=== PATIENT | female | born 1985 | race African-American/Black ===

== ENCOUNTER 2017-02-25 22:49 | Emergency (ER) | payer SELFPAY ==
[~2017-02-25] VITALS: Ht 165.1 cm; Wt 68.0 kg
--- NOTE | 2017-02-25 22:50 | NUR ---
Dr. Nevarez evaluating patient
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
[2017-02-25 22:53] VITALS: BP 124/88
--- NOTE | 2017-02-25 22:53 | NUR ---
PT OG BLS. TAKEN TO BED 6
[2017-02-25] MEDS ORDERED: NACL 0.9% 1,000 ML IV ONE (23:10)
--- NOTE | 2017-02-25 23:21 | NUR ---
[place] [facility] AT BEDSIDE
[2017-02-25 23:38] LABS: BASOPHILS # (AUTO) 0.3 K/uL (0.00-0.22); EOSINOPHILS # (AUTO) 0.1 K/uL (0-0.4); EOSINOPHILS % (AUTO) 1.1 % (0.0-4.0); LYMPHOCYTES # (AUTO) 2.4 K/uL (2.5-16.5); LYMPHOCYTES % (AUTO) 22.1 % (20.5-51.1); MEAN CORPUSCULAR HEMOGLOBIN 27 pg (27-31); MEAN CORPUSCULAR HGB CONC 33 g/dL (33-37); MEAN CORPUSCULAR VOLUME 82 fL (80-94); MONOCYTES # (AUTO) 0.8 K/uL (0.8-1.0); MONOCYTES % (AUTO) 7.3 % (1.7-9.3); NEUTROPHILS # (AUTO) 7.1 K/uL (1.8-7.7); NEUTROPHILS % (AUTO) 66.5 % (42.2-75.2); PLATELET COUNT (AUTO) 306 K/uL (140-450); RED BLOOD CELL COUNT(AUTO) 4.85 MIL/uL (4.20-5.40); RED CELL DISTRIBUTION WIDTH 12.9 % (11.6-13.7); WHITE BLOOD COUNT (AUTO) 10.7 K/uL (4.8-10.8)
[2017-02-25 23:45] LABS: APPEARANCE,URINE HAZY (CLEAR); BILIRUBIN,URINE NEGATIVE (NEGATIVE); BLOOD, URINE NEGATIVE (NEGATIVE); COLOR,URINE YELLOW (YELLOW); LEUKOCYTE ESTERASE ,URINE NEGATIVE (NEGATIVE); NITRITE, URINE NEGATIVE (NEGATIVE); PROTEIN,URINE 2+ (NEGATIVE); UGLUCOSE NEGATIVE (NEGATIVE); UROBILINOGEN,URINE 0.2 EU/dL (0.2 - 1)
[2017-02-25 23:52] LABS: AMPHETAMINE, URINE POS. ng/ml (NEG <=1000); BARBITURATE, URINE NEG. ng/ml (NEG <=200); BENZODIAZEPINE, URINE NEG. ng/mL (NEG <=200); CANNABINOID, URINE NEG. ng/mL (NEG <=50); COCAINE, URINE NEG. ng/mL (NEG <=300); OPIATE, URINE NEG. ng/mL (NEG <=2000); PHENCYCLIDINE SCREEN,URINE NEG. ng/mL (NEG <=25)
[2017-02-25 23:53] LABS: ACETAMINOPHEN < 0.5 ug/ml (10-30); ALANINE AMINOTRANSFERASE 31 U/L (14-59); ALBUMIN 3.7 g/dL (3.4-5.0); ALCOHOL, BLOOD < 3 mg/dL (<3); ALKALINE PHOSPHATASE 76 U/L (46-116); ANION GAP 11.2 (8-16); ASPARTATE AMINOTRANSFERASE 20 U/L (15-37); CARBON DIOXIDE 28.1 mmol/L (21-32); CHLORIDE 105 mmol/L (98-107); CREATININE 1.5 mg/dL (0.6-1.3); GFR ARICAN-AMERICAN 52 mL/min (>90); GFR NON ARICAN-AMERICAN 43 mL/min (>90); GLUCOSE 88 mg/dL (74-106); POTASSIUM 4.3 mmol/L (3.5-5.1); SALICYLATE < 2.8 mg/dL (2.8-20.0); SODIUM SERUM 140 mmol/L (136-145); TOTAL BILIRUBIN 0.3 mg/dL (0.0-1.0); TOTAL PROTEIN, SERUM 7.5 g/dL (6.4-8.2); UREA NITROGEN, BLOOD 15 mg/dL (7-18)
[2017-02-25 23:54] LABS: RBC,URINE 0-5 (RARE) /HPF (0-5); WBC,URINE 0-5 (RARE) /HPF (0-5)
[2017-02-25 23:55] LABS: BACTERIA,URINE FEW /HPF (None Seen); CALCIUM OXALATE CRYSTALS,UR 50-70 /HPF (None Seen); MUCUS,URINE 2+ /LPF (None Seen)
--- NOTE | 2017-02-25 23:57 | NUR ---
PT TAKEN TO CT
[2017-02-26] MEDS ORDERED: HYDROcodone/APAP 10/325 MG 1 TAB TAB PO STA (04:09)
--- NOTE | 2017-02-26 04:25 | NUR ---
IV removed, catheter intact and site benign. Applied folded 4x4 gauze and tape to stop bleeding.
--- NOTE | 2017-02-26 04:30 | NUR ---
Patient discharged with v/s stable. Written and verbal after care instructions given and explained. Patient alert, oriented and verbalized understanding of instructions. Ambulatory with steady gait. All questions addressed prior to discharge. ID band removed. Patient advised to follow up with PMD. Rx of NORCO 10/325MG given. Patient educated on indication of medication including possible reaction and side effects. Opportunity to ask questions provided and answered.
[2017-02-26 04:31] VITALS: BP 119/82
== END 2017-02-26 04:30 | disposition home or self-care (01) ==
LOC: MED 22:49
DX: S00.93XA Contusion of unspecified part of head, initial encounter (principal); S05.01XA Injury of conjunctiva and corneal abrasion without foreign body, right eye, initial encounter; F12.90 Cannabis use, unspecified, uncomplicated; F32.9 Major depressive disorder, single episode, unspecified; Y04.2XXA Assault by strike against or bumped into by another person, initial encounter; Y93.89 Activity, other specified; Y92.89 Other specified places as the place of occurrence of the external cause; Y99.8 Other external cause status
CPT/HCPCS: 36415; 70450; 72125; 80053; 80305; 81001; 81025; 82948; 85025; 96360; 99285; C1758; G0480; G0482; J7030

== ENCOUNTER 2017-07-25 19:29 | Emergency (ER) | payer SELFPAY ==
[~2017-07-25] VITALS: Ht 152.4 cm; Wt 67.6 kg
--- NOTE | 2017-07-25 19:29 | NUR ---
LO[facility]O WHITE. TAKEN TO BED 1
[2017-07-25 19:30] VITALS: BP 134/99
[2017-07-25] MEDS ORDERED: DICYCLOMINE HCL LIQUID 20 MG, ALUMINUM HYD/MAG/SIMETHICONE 30 ML, LIDOCAINE VISCOUS 2% ... PO ONE ×3 (19:35)
[2017-07-25] MEDS ORDERED: KETOROLAC 30 MG/ML VIAL IM ONE (19:35)
[2017-07-25] MEDS ORDERED: ONDANSETRON 4 MG ODT PO ONE (19:35)
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
[2017-07-25] MEDS ORDERED: ONDANSETRON 4 MG/2 ML VIAL IM ONE (19:45)
--- NOTE | 2017-07-25 19:45 | NUR ---
X-Ray at bedside.
--- NOTE | 2017-07-25 19:50 | NUR ---
[facility] CALLED AND NOTIFIED ABOUT BLEACH INGESTION.
[2017-07-25] MEDS ORDERED: ONDANSETRON 4 MG/2 ML VIAL ONE (19:57)
[2017-07-25 20:45] VITALS: BP 126/81
--- NOTE | 2017-07-25 20:45 | NUR ---
Patient discharged with v/s stable. Written and verbal after care instructions given and explained. Patient alert, oriented and verbalized understanding of instructions. Ambulatory with steady gait. All questions addressed prior to discharge. ID band removed. Patient advised to follow up with PMD. Rx of MYLANTA AND ZOFRAN given. Patient educated on indication of medication including possible reaction and side effects. Opportunity to ask questions provided and answered.
[2017-07-25 21:17] LABS: BARBITURATE, URINE NEG. ng/ml (NEG <=200); BENZODIAZEPINE, URINE NEG. ng/mL (NEG <=200); CANNABINOID, URINE POS. ng/mL (NEG <=50); COCAINE, URINE NEG. ng/mL (NEG <=300); OPIATE, URINE NEG. ng/mL (NEG <=2000); PHENCYCLIDINE SCREEN,URINE NEG. ng/mL (NEG <=25)
== END 2017-07-25 20:45 | disposition home or self-care (01) ==
LOC: MED 19:29
DX: T50.901A Poisoning by unspecified drugs, medicaments and biological substances, accidental (unintentional), initial encounter (principal); R10.10 Upper abdominal pain, unspecified; F17.210 Nicotine dependence, cigarettes, uncomplicated; Y92.89 Other specified places as the place of occurrence of the external cause
CPT/HCPCS: 71010; 80305; 81025; 96372; 99285; J1885; J2405; Q0092

== ENCOUNTER 2021-10-19 23:35 | Emergency (ER) | payer SELFPAY ==
[~2021-10-19] VITALS: Ht 152.4 cm; Wt 76.2 kg
[2021-10-20 00:10] VITALS: BP 137/68
--- NOTE | 2021-10-20 00:17 | NUR ---
PT TAKEN TO BED 11.
[2021-10-20] MEDS ORDERED: KETOROLAC 60 MG/2 ML VIAL IM ONE (00:30)
--- NOTE | 2021-10-20 00:30 | NUR ---
36 Y/O FEMALE BIB SELF, C/O PAIN IN LEFT LEG X4 DAYS. PATIENT PRESENTS TO ED WITH REDNESS, PAIN, AND SWELLING IN LEFT LEG. DENIES N/V/D; SKIN IS PINK/WARM/DRY; PT DENIES ANY FEVER, CP, SOB, OR COUGH AT THIS TIME; PATIENT STATES PAIN OF 10/10 AT THIS TIME; VSS; PATIENT POSITIONED FOR COMFORT; HOB ELEVATED; BEDRAILS UP X2; BED DOWN. ER MD MADE AWARE OF PT STATUS. HX:ASTHMA RX:ALBUTEROL
[2021-10-20] MEDS ORDERED: CEPH-588 PO (00:32)
[2021-10-20] MEDS ORDERED: ACET-8386 PO (00:32)
[2021-10-20] MEDS ORDERED: IBUP-2213 PO (00:32)
[2021-10-20 00:41] VITALS: BP 137/68
--- NOTE | 2021-10-20 00:41 | NUR ---
Patient discharged with v/s stable. Written and verbal after care instructions given and explained. Patient alert, oriented and verbalized understanding of instructions. Ambulatory with steady gait. All questions addressed prior to discharge. ID band removed. Patient advised to follow up with PMD. Rx of Hydrococdone/Acetaminophen, Ibuprofen, and Cephalexin given. Patient educated on indication of medication including possible reaction and side effects. Opportunity to ask questions provided and answered. A/OX4, VSS, AMBULATORY, UNLABORED BREATHING, AND CALM DEMEANOR.
== END 2021-10-20 00:41 | disposition home or self-care (01) ==
LOC: MED 23:35
DX: L03.116 Cellulitis of left lower limb (principal); J45.909 Unspecified asthma, uncomplicated; F17.200 Nicotine dependence, unspecified, uncomplicated
CPT/HCPCS: 96372; 99283; J1885

== ENCOUNTER 2021-10-23 21:35 | Emergency (ER) | payer SELFPAY ==
[~2021-10-23] VITALS: Ht 152.4 cm; Wt 76.2 kg
[~2021-10-23 21:35] MED LIST: ACET-8386 PO; CEPH-588 PO; IBUP-2213 PO
[2021-10-23 22:20] VITALS: BP 137/79
--- NOTE | 2021-10-23 22:30 | NUR ---
PT W/C ASSISTED TO BED #6
--- NOTE | 2021-10-23 22:55 | NUR ---
PATIENT PRESENTS TO ED WITH LLE ABSCESS. PT STATES SHE CAME IN TO ED X2 DAYS AND ABX DID NOT HELP. SPIDER BITE OCCURRED X1 WEEK. DENIES N/V/D; SKIN IS PINK/WARM/DRY; AAOX4 WITH EVEN AND STEADY GAIT; LUNGS CLEAR BL; HR EVEN AND REGULAR; PT DENIES ANY FEVER, CP, SOB, OR COUGH AT THIS TIME; PATIENT STATES PAIN OF 8/10 SHARP PAIN AT RANDOM TIMES. PT HAS +2 PITTING EDEMA LLE; VSS; PATIENT POSITIONED FOR COMFORT; HOB ELEVATED; BEDRAILS UP X2; BED DOWN. ER MD MADE AWARE OF PT STATUS. PMH: ASTHMA ALLERGIES: DENIES MEDS: INHALER PRN; CLINDAMYCIN
[2021-10-24 00:02] LABS: BASOPHILS # (AUTO) 0.1 K/uL (0.00-0.22); BASOPHILS % (AUTO) 1.3 % (0.0-2.0); EOSINOPHILS # (AUTO) 0.2 K/uL (0-0.4); EOSINOPHILS % (AUTO) 3.2 % (0.0-4.0); HEMATOCRIT 34.5 % (36-48); HEMOGLOBIN 11.3 g/dL (12.0-16.0); LYMPHOCYTES # (AUTO) 2.8 K/uL (2.5-16.5); LYMPHOCYTES % (AUTO) 36.4 % (20.5-51.1); MEAN CORPUSCULAR HEMOGLOBIN 27 pg (27-31); MEAN CORPUSCULAR HGB CONC 33 g/dL (33-37); MEAN CORPUSCULAR VOLUME 81.5 fL (80-94); MONOCYTES # (AUTO) 0.7 K/uL (0.8-1.0); MONOCYTES % (AUTO) 8.6 % (1.7-9.3); NEUTROPHILS # (AUTO) 3.8 K/uL (1.8-7.7); NEUTROPHILS % (AUTO) 50.5 % (42.2-75.2); PLATELET COUNT (AUTO) 345 K/uL (140-450); RED BLOOD CELL COUNT(AUTO) 4.23 MIL/uL (4.20-5.40); RED CELL DISTRIBUTION WIDTH 13.8 % (11.6-13.7); WHITE BLOOD COUNT (AUTO) 7.6 K/uL (4.8-10.8)
[2021-10-24 00:10] LABS: ANION GAP 11.6 (8-16); POTASSIUM 4.6 mmol/L (3.5-5.1)
--- NOTE | 2021-10-24 00:30 | NUR ---
[facility] AT BEDSIDE
[2021-10-24] MEDS ORDERED: VANCOMYCIN 1,000 MG in DEXTROSE 5% 250 ML IV ONE (00:50)
[2021-10-24] MEDS ORDERED: VANCOMYCIN 1,000 MG VIAL ONE (01:10)
[2021-10-24] MEDS ORDERED: KETOROLAC 15 MG/ML VIAL IVP ONE (02:00)
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
[2021-10-24] MEDS ORDERED: LIDOCAINE 2% 1000 MG/50 ML VIAL INJ ONE (04:05)
--- NOTE | 2021-10-24 04:20 | NUR ---
PT STABLE AND ASLEEP. VSS.
[2021-10-24] MEDS ORDERED: MORPHINE SULFATE 4 MG/ML SYR ONE (06:12)
[2021-10-24] MEDS ORDERED: SULF-59 PO (06:14)
[2021-10-24] MEDS ORDERED: MORPHINE SULFATE 4 MG/ML SYR IVP ONE (06:15)
--- NOTE | 2021-10-24 06:30 | NUR ---
DR MOROCHO AT BEDSIDE . PT BANDAGED
[2021-10-24] MEDS ORDERED: BACITRACIN OINT 500 UNITS/GM PKT TP ONE (06:33)
[2021-10-24 07:00] VITALS: BP 115/60
--- NOTE | 2021-10-24 07:00 | NUR ---
Patient discharged with v/s stable. Written and verbal after care instructions given and explained. Patient alert, oriented and verbalized understanding of instructions. Wheel Chair Assisted with to car. All questions addressed prior to discharge. ID band removed. Patient advised to follow up with PMD. Rx of bactrim given. Opportunity to ask questions provided and answered.
== END 2021-10-24 07:00 | disposition home or self-care (01) ==
LOC: MED 21:35
DX: L02.416 Cutaneous abscess of left lower limb (principal); L03.116 Cellulitis of left lower limb
CPT/HCPCS: 10060; 36415; 80048; 85025; 93971; 96365; 96375; 99285; J1885; J2001; J2270; J3370; Q0092

== ENCOUNTER 2022-04-03 11:01 | Emergency (ER) | payer SELFPAY ==
[~2022-04-03] VITALS: Ht 152.4 cm; Wt 88.5 kg
[~2022-04-03 11:01] MED LIST changes: +SULF-59 PO
[2022-04-03 11:18] VITALS: BP 103/36
--- NOTE | 2022-04-03 11:21 | NUR ---
PT AMBULATED TO BED 06.
--- NOTE | 2022-04-03 11:50 | NUR ---
36YO FEMALE PT C/O TIGHT 3/10 L EAR PAIN X2 WEEKS. PT STATES SUDDEN ONSET W/ RADIATION IN L SIDE OF JAW AND TEETH. REPORTS INCREASED LOSS OF HEARING AND RINGING XTODAY. MILD RELIEF AFTER USING " EAR DROPS", NORCO AND TYLENOL. DENIES N/V/D, SOB OR CHILLS. REPORTS ORAL FEVER OF 102 LAST WEEK. EAR PRESENTS CLEAR W/O VISIBLE INJURY OR DISCHARGE. NOTES OCCASIONAL "PINK PUSS". MILD DIZZINESS AT THIS TIME. PT AAOX4, NO VISIBLE DISTRESS, RESPIRATIONS EVEN AND UNLABORED. HOB POSITIONED PER COMFORT, BED AT LOWEST POSITION , BED RAIL UP X2. HX: ASTHMA, HYPOTHYROID NKA
--- NOTE | 2022-04-03 12:04 | NUR ---
[facility] AT BEDSIDE FOR EVALUATION
[2022-04-03] MEDS ORDERED: IBUPROFEN 800 MG TAB PO ONE (12:25)
[2022-04-03] MEDS ORDERED: IBUP-2213 PO (12:38)
[2022-04-03] MEDS ORDERED: CIPR7.5S OT (12:38)
[2022-04-03] MEDS ORDERED: AMOX1TAB8 PO (12:38)
[2022-04-03 12:55] VITALS: BP 115/80
--- NOTE | 2022-04-03 12:56 | NUR ---
Patient discharged with v/s stable. Written and verbal after care instructions given and explained. Patient verbalized understanding. Ambulatory with steady gait. All questions addressed prior to discharge. Advised to follow up with PMD.
--- NOTE | 2022-04-03 12:56 | NUR ---
The patient's care was reviewed and supervised by ED Agency Nurse 9, RN, RN.
== END 2022-04-03 12:56 | disposition home or self-care (01) ==
LOC: MED 11:01
DX: H60.502 Unspecified acute noninfective otitis externa, left ear (principal); J45.909 Unspecified asthma, uncomplicated; Z79.899 Other long term (current) drug therapy
CPT/HCPCS: 99282

== ENCOUNTER 2023-09-29 18:31 | Inpatient (IN) | payer MEDICAID ==
[~2023-09-29] VITALS: Ht 152.4 cm; Wt 80.7 kg
[~2023-09-29 18:31] MED LIST changes: -ACET-8386 PO; +ACET-8905 PO; +AMOX-1230 PO; +AMOX1TAB8 PO; +CIPR7.5S OT
[2023-09-29 18:50] VITALS: BP 107/83; PULSE 112; RESP 22; TEMP 98.3; O2SAT 100
[2023-09-29] MEDS ORDERED: ALBUTEROL SULFATE/IPRATROPIU 3 ML SOL IH ONE (18:55)
[2023-09-29] MEDS ORDERED: ALBUTEROL HFA MDI 90 MCG/ACTUATION 8 GM INH ONE (18:55)
[2023-09-29] MEDS ORDERED: ALBUTEROL 0.083% 2.5 MG/3 ML NEBU INH PRN (18:55)
[2023-09-29] MEDS ORDERED: IPRATROPIUM 0.02% 0.5 MG/2.5 ML NEBU INH PRN (18:55)
[2023-09-29] MEDS: ALBUTEROL 0.083% 2.5 MG/3 ML NEBU INH ONE ×2 (19:07→21:04)
[2023-09-29] MEDS: IPRATROPIUM 0.02% 0.5 MG/2.5 ML NEBU INH ONE ×2 (19:07→21:04)
[2023-09-29 19:12] VITALS: PULSE 117; RESP 28; O2SAT 100
[2023-09-29] MEDS: NACL 0.9% 1,000 ML IV ONE (19:27)
[2023-09-29] MEDS: MAG SULF 2000 MG/WATER PREMIX 50 ML IV ONE (19:28)
[2023-09-29] MEDS: methylPREDNISolone SS 125 MG/2 ML VIAL IVP ONE (19:28)
[2023-09-29 20:09] LABS: FLU A ANTIGEN negative (NEGATIVE); FLU B ANTIGEN NEGATIVE (NEGATIVE)
[2023-09-29] MEDS ORDERED: ONDANSETRON 4 MG/2 ML VIAL ONE (20:19)
[2023-09-29] MEDS: ONDANSETRON 4 MG/2 ML VIAL IVP ONE (20:32)
[2023-09-29 21:05] VITALS: PULSE 107; RESP 20; O2SAT 100
[2023-09-29 21:05] LABS: BASOPHILS % (AUTO) 0.4 % (0.0-2.0); EOSINOPHILS # (AUTO) 0.3 K/uL (0-0.4); EOSINOPHILS % (AUTO) 2.4 % (0.0-4.0); HEMATOCRIT 36.1 % (36-48); HEMOGLOBIN 11.8 g/dL (12.0-16.0); LYMPHOCYTES # (AUTO) 2.2 K/uL (2.5-16.5); LYMPHOCYTES % (AUTO) 19.9 % (20.5-51.1); MEAN CORPUSCULAR HEMOGLOBIN 26 pg (27-31); MEAN CORPUSCULAR HGB CONC 33 g/dL (33-37); MEAN CORPUSCULAR VOLUME 80.6 fL (80-94); MONOCYTES # (AUTO) 0.7 K/uL (0.8-1.0); MONOCYTES % (AUTO) 6.2 % (1.7-9.3); NEUTROPHILS % (AUTO) 71.1 % (42.2-75.2); PLATELET COUNT (AUTO) 290 K/uL (140-450); RED BLOOD CELL COUNT(AUTO) 4.48 MIL/uL (4.20-5.40); RED CELL DISTRIBUTION WIDTH 13.8 % (11.6-13.7); WHITE BLOOD COUNT (AUTO) 11.2 K/uL (4.8-10.8)
[2023-09-29 21:26] LABS: ANION GAP 11.5 (8-16); CALCIUM 8.3 mg/dL (8.5-10.1); CARBON DIOXIDE 23.8 mmol/L (21-32); CREATININE 1.1 mg/dL (0.6-1.3); POTASSIUM 3.3 mmol/L (3.5-5.1)
[2023-09-29 21:34] LABS: ALANINE AMINOTRANSFERASE 21 U/L (12-78); ALBUMIN 3.1 g/dL (3.4-5.0); ALKALINE PHOSPHATASE 79 U/L (50-136); ASPARTATE AMINOTRANSFERASE 18 U/L (15-37); BILIRUBIN,DIRECT 0.1 mg/dL (0.0-0.3); TOTAL BILIRUBIN 0.1 mg/dL (0.0-1.0); TOTAL PROTEIN, SERUM 7.8 g/dL (6.4-8.2)
[2023-09-29] MEDS ORDERED: ONDANSETRON 4 MG/2 ML VIAL IVP PRN (22:00)
[2023-09-29] MEDS ORDERED: MORPHINE SULFATE 2 MG/ML SYR IVP PRN (22:00)
[2023-09-29] MEDS ORDERED: HYDROcodone/APAP 5/325 MG 1 TAB TAB PO PRN (22:00)
[2023-09-29] MEDS ORDERED: ALBU0.0912 INH (22:27)
[2023-09-29] MEDS ORDERED: AZITHROMYCIN 500 MG INJ VIAL IV ONE (22:35)
[2023-09-29] MEDS ORDERED: cefTRIAXone 1,000 MG VIAL ONE (22:35)
[2023-09-29] MEDS: KETOROLAC 30 MG/ML VIAL IVP ONE (22:44)
[2023-09-29] MEDS: NACL 0.9% 1,000 ML IV SCH (22:49)
[2023-09-29] MEDS: AZITHROMYCIN 500 MG in DEXTROSE 5% 250 ML IV SCH (22:50)
[2023-09-30] VITALS (9 sets, daily range): BP systolic 92–112; BP diastolic 47–74; PULSE 89–104; RESP 16–20; TEMP 97.2–99.2; O2SAT 97–100
[2023-09-30] MEDS: ALBUTEROL SULFATE/IPRATROPIU 3 ML SOL IH SCH (02:05)
[2023-09-30] MEDS: methylPREDNISolone SS 40 MG/ML VIAL IVP SCH (05:21)
[2023-09-30 06:51] LABS: BASOPHILS % (AUTO) 0.1 % (0.0-2.0); EOSINOPHILS % (AUTO) 0.1 % (0.0-4.0); HEMATOCRIT 37.8 % (36-48); HEMOGLOBIN 12.4 g/dL (12.0-16.0); LYMPHOCYTES # (AUTO) 0.8 K/uL (2.5-16.5); MEAN CORPUSCULAR HEMOGLOBIN 27 pg (27-31); MEAN CORPUSCULAR HGB CONC 33 g/dL (33-37); MEAN CORPUSCULAR VOLUME 80.8 fL (80-94); MONOCYTES # (AUTO) 0.4 K/uL (0.8-1.0); NEUTROPHILS # (AUTO) 8.4 K/uL (1.8-7.7); NEUTROPHILS % (AUTO) 87.8 % (42.2-75.2); PLATELET COUNT (AUTO) 311 K/uL (140-450); RED BLOOD CELL COUNT(AUTO) 4.68 MIL/uL (4.20-5.40); RED CELL DISTRIBUTION WIDTH 14.2 % (11.6-13.7); WHITE BLOOD COUNT (AUTO) 9.6 K/uL (4.8-10.8)
[2023-09-30 06:58] LABS: ANION GAP 13.1 (8-16); CALCIUM 8.5 mg/dL (8.5-10.1); CARBON DIOXIDE 21.6 mmol/L (21-32); CREATININE 1.1 mg/dL (0.6-1.3); POTASSIUM 4.7 mmol/L (3.5-5.1)
[2023-09-30 07:11] LABS: TOTAL BILIRUBIN 0.1 mg/dL (0.0-1.0)
[2023-09-30] MEDS: ENOXAPARIN 40 MG/0.4 ML SYR SUBQ SCH (09:00)
[2023-09-30] MEDS: BENZONATATE 100 MG CAPLF PO PRN (14:32)
[2023-09-30] MEDS: ACETAMINOPHEN 325 MG TAB PO PRN (14:32)
[2023-10-01] VITALS (10 sets, daily range): BP systolic 104–118; BP diastolic 58–67; PULSE 81–98; RESP 16–20; TEMP 97.5–98.6; O2SAT 96–99
[2023-10-01 06:38] LABS: HEMATOCRIT 36.9 % (36-48); HEMOGLOBIN 12.1 g/dL (12.0-16.0); MEAN CORPUSCULAR HEMOGLOBIN 27 pg (27-31); MEAN CORPUSCULAR HGB CONC 33 g/dL (33-37); MEAN CORPUSCULAR VOLUME 80.8 fL (80-94); PLATELET COUNT (AUTO) 340 K/uL (140-450); RED BLOOD CELL COUNT(AUTO) 4.57 MIL/uL (4.20-5.40); RED CELL DISTRIBUTION WIDTH 14.3 % (11.6-13.7); WHITE BLOOD COUNT (AUTO) 22.9 K/uL (4.8-10.8)
[2023-10-01 07:39] LABS: PLATELET COUNT,MANUAL 350 K/uL (150-450)
[2023-10-01 07:40] LABS: BASOPHILS % (MANUAL) 0 % (0-2); EOSINOPHILS % (MANUAL) 0 % (0-4); LYMPHOCYTES % (MANUAL) 10 % (20-46); PLATELET ESTIMATE ADEQUATE
[2023-10-01 07:41] LABS: MONOCYTES % (MANUAL) 4 % (5-12)
[2023-10-01 07:51] LABS: ANION GAP 11.6 (8-16); CALCIUM 8.5 mg/dL (8.5-10.1); CARBON DIOXIDE 22.8 mmol/L (21-32); CREATININE 0.9 mg/dL (0.6-1.3); POTASSIUM 4.4 mmol/L (3.5-5.1)
[2023-10-01] MEDS ORDERED: ACETYLCYSTEINE 20% (200 MG/ML) 200 MG/ML VIAL INH SCH (08:21)
[2023-10-01] MEDS: methylPREDNISolone SS 40 MG/ML VIAL IVP SCH (09:16)
[2023-10-01 12:52] LABS: APPEARANCE,URINE SL CLOUDY (CLEAR); BILIRUBIN,URINE NEGATIVE (NEGATIVE); BLOOD, URINE NEGATIVE (NEGATIVE); COLOR,URINE YELLOW (YELLOW); LEUKOCYTE ESTERASE ,URINE NEGATIVE (NEGATIVE); NITRITE, URINE NEGATIVE (NEGATIVE); PROTEIN,URINE NEGATIVE (NEGATIVE); UGLUCOSE NEGATIVE (NEGATIVE); UROBILINOGEN,URINE 0.2 EU/dL (0.2 - 1)
[2023-10-01 13:04] LABS: AMPHETAMINE, URINE POSITIVE ng/ml (NEG <=1000); BARBITURATE, URINE NEGATIVE ng/ml (NEG <=200); BENZODIAZEPINE, URINE NEGATIVE ng/mL (NEG <=200); CANNABINOID, URINE NEGATIVE ng/mL (NEG <=50); COCAINE, URINE NEGATIVE ng/mL (NEG <=300)
[2023-10-01 13:05] LABS: OPIATE, URINE NEGATIVE ng/mL (NEG <=2000); PHENCYCLIDINE SCREEN,URINE NEGATIVE ng/mL (NEG <=25)
[2023-10-02 01:16] VITALS: PULSE 96; RESP 16; O2SAT 98
[2023-10-02 04:00] VITALS: BP 114/77; PULSE 72; RESP 18; TEMP 98.5; O2SAT 95
[2023-10-02 06:37] LABS: BASOPHILS # (AUTO) 0.1 K/uL (0.00-0.22); BASOPHILS % (AUTO) 0.4 % (0.0-2.0); HEMATOCRIT 36.1 % (36-48); HEMOGLOBIN 11.8 g/dL (12.0-16.0); LYMPHOCYTES # (AUTO) 3.1 K/uL (2.5-16.5); LYMPHOCYTES % (AUTO) 15.6 % (20.5-51.1); MEAN CORPUSCULAR HEMOGLOBIN 26 pg (27-31); MEAN CORPUSCULAR HGB CONC 33 g/dL (33-37); MEAN CORPUSCULAR VOLUME 80.4 fL (80-94); MONOCYTES # (AUTO) 1.6 K/uL (0.8-1.0); NEUTROPHILS # (AUTO) 15.1 K/uL (1.8-7.7); PLATELET COUNT (AUTO) 325 K/uL (140-450); RED BLOOD CELL COUNT(AUTO) 4.49 MIL/uL (4.20-5.40); RED CELL DISTRIBUTION WIDTH 14.1 % (11.6-13.7); WHITE BLOOD COUNT (AUTO) 19.9 K/uL (4.8-10.8)
[2023-10-02 06:43] LABS: ANION GAP 9.6 (8-16); CALCIUM 8.3 mg/dL (8.5-10.1); CARBON DIOXIDE 25.4 mmol/L (21-32); CREATININE 0.9 mg/dL (0.6-1.3)
[2023-10-02 07:58] VITALS: O2SAT 99
[2023-10-02 08:00] VITALS: PULSE 75; RESP 17; O2SAT 99
[2023-10-02] MEDS: predniSONE 20 MG TAB PO SCH (09:45)
== END 2023-10-02 13:30 | disposition left against medical advice (07) | DRG 141 ==
LOC: MED 18:31 → MTU 21:58
PROVIDERS: ADMIT Student in an Organized Health Care Education/Training Program; ATTEND Student in an Organized Health Care Education/Training Program
DX: J45.901 Unspecified asthma with (acute) exacerbation (principal); J96.01 Acute respiratory failure with hypoxia; E44.0 Moderate protein-calorie malnutrition; J44.1 Chronic obstructive pulmonary disease with (acute) exacerbation; R65.10 Systemic inflammatory response syndrome (SIRS) of non-infectious origin without acute organ dysfunction; E83.51 Hypocalcemia; Z20.822 Contact with and (suspected) exposure to COVID-19; Z68.34 Body mass index [BMI] 34.0-34.9, adult; Z79.899 Other long term (current) drug therapy
CPT/HCPCS: 36415; 71045; 80048; 80053; 80076; 80305; 81003; 84484; 85025; 85379; 87040; 87081; 93005; 94640; 96365; 96367; 96375; 99285; J0456; J0696; J1650; J1885; J2405; J2920; J2930; J3475; J7060; J7512; J7613; J7644; Q0092